=== PATIENT | male | born 2000 | race African-American/Black ===

== ENCOUNTER 2018-06-07 06:33 | Day surgery (SDC) | payer OTHER ==
[2018-06-07 06:46] LABS: ADD MAN DIFF? NO
[2018-06-07 06:47] LABS: BASOPHILS % 1.1 % (0.0-2.0); EOSINOPHILS # 0.4 10^3/ul (0.0-0.5); EOSINOPHILS % 10.2 % (0.0-7.0); HEMOGLOBIN 13.6 g/dl (14.0-18.0); LYMPHOCYTES # 1.8 10^3/ul (0.8-2.9); LYMPHOCYTES % 48.7 % (18.0-55.0); MEAN CORPUSCULAR HEMOGLOBIN 31.1 pg (29.0-33.0); MEAN CORPUSCULAR VOLUME 91.5 fl (72.0-104.0); MEAN PLATELET VOLUME 10.8 fl (7.4-10.4); MONOCYTE # 0.4 10^3/ul (0.3-0.9); MONOCYTES % 10.2 % (0.0-13.0); NEUTROPHIL # 1.1 10^3/ul (1.6-7.5); NEUTROPHILS % 29.5 % (30.0-74.0); PLATELET COUNT 139 10^3/UL (140-415); POSITIVE DIFF @See below; RED BLOOD COUNT 4.37 10^6/ul (4.70-6.10); RED CELL DISTRIBUTION WIDTH 13.2 % (11.5-14.5)
[2018-06-07 06:47] LABS: WHITE BLOOD COUNT 3.7 10^3/ul (4.8-10.8)
[2018-06-07 06:49] LABS: HOLD TRANSMISSIONS 1
[2018-06-07] MEDS ORDERED: SEVOFLURANE 15 MIN (07:00)
[2018-06-07] MEDS ORDERED: LIDOCAINE 2% (SDV) 5 ML INJ (07:00)
[2018-06-07] MEDS ORDERED: PROPOFOL 100 ML (08:15)
[2018-06-07] MEDS ORDERED: BUPIVACAINE 0.5% (SDV) 30 ML INJ (09:04)
[2018-06-07] MEDS ORDERED: POLYMYXIN/BACITRACIN 1L IRRIG (09:04)
[2018-06-07] MEDS ORDERED: CEFAZOLIN 1 GM INJ (09:13)
[2018-06-07] MEDS ORDERED: OXYCODONE/ACETAMINOPHEN (5/325) TAB PO ×2 (09:30)
[2018-06-07] MEDS ORDERED: LABETALOL HCL 20MG INJ IV (09:30)
[2018-06-07] MEDS ORDERED: HYDROmorphONE 1 MG/5 ML IV SYRINGE IV ×3 (09:30)
[2018-06-07] MEDS ORDERED: DIPHENHYDRAMINE 50 MG INJ IV (09:30)
[2018-06-07] MEDS ORDERED: EPHEDrine SULFATE 50 MG/5 ML SYG IV (09:30)
[2018-06-07] MEDS ORDERED: hydrALAzine 20 MG INJ IV (09:30)
[2018-06-07] MEDS ORDERED: METOCLOPRAMIDE 10 MG INJ IV (09:30)
[2018-06-07] MEDS ORDERED: MEPERIDINE 25 MG INJ IV (09:30)
[2018-06-07] MEDS ORDERED: MIDAZOLAM 1 MG/ML 2 ML INJ IV (09:30)
[2018-06-07] MEDS ORDERED: ONDANSETRON 4 MG INJ IV (09:30)
[2018-06-07] MEDS ORDERED: FENTAnyl 50 MCG/ML VIAL IV ×3 (09:30)
[2018-06-07] MEDS ORDERED: ALBUTEROL 0.083% (NEB) 2.5 MG/3 ML AMP HHN (09:30)
== END 2018-06-07 10:30 | disposition home or self-care (01) ==
LOC: SDS 06:33
DX: S61.252D Open bite of right middle finger without damage to nail, subsequent encounter (principal); Y04.1XXD Assault by human bite, subsequent encounter; J45.909 Unspecified asthma, uncomplicated
CPT/HCPCS: 26135; 85025; 87070; 87102; 87116